=== PATIENT | female | born 1990 | race Hispanic/Latino ===

== ENCOUNTER 2023-11-17 15:33 | Inpatient (IN) | payer BC ==
[2023-11-16 21:30] VITALS: BP 159/110
[~2023-11-17] VITALS: Ht 170.2 cm; Wt 79.8 kg
[2023-11-17 16:20] LABS: BASOPHILS # (AUTO) 0.02 K/uL (0.00-0.20); BASOPHILS % (AUTO) 0.4 % (0.0-5.0); EOSINOPHILS # (AUTO) 0.03 K/uL (0.00-0.70); EOSINOPHILS % (AUTO) 0.6 % (0.0-8.0); HEMATOCRIT 35.3 % (36-48); IMMATURE GRANULOCYTE ABSOLUTE 0.03 K/uL (0-1); LYMPHOCYTES # (AUTO) 1.1 K/uL (1.0-4.8); LYMPHOCYTES % (AUTO) 23.5 % (21.0-51.0); MEAN CORPUSCULAR HGB CONC 32.9 g/dL (32.0-36.0); MEAN CORPUSCULAR VOLUME 100.6 fL (79-99); MONOCYTES # (AUTO) 0.8 K/uL (0.1-1.0); MONOCYTES % (AUTO) 16.3 % (3.0-13.0); NEUTROPHILS # (AUTO) 2.9 K/uL (1.8-7.7); NEUTROPHILS % (AUTO) 58.6 % (40.0-77.0); PLATELET COUNT (AUTO) 205 K/uL (130-400); RED BLOOD CELL COUNT(AUTO) 3.51 MIL/uL (4.00-5.50); RED CELL DISTRIBUTION WIDTH 13.1 % (11.0-15.5); WHITE BLOOD COUNT (AUTO) 4.9 K/uL (4.8-10.8)
[2023-11-17 16:48] LABS: CREATININE 5.6 mg/dL (0.5-1.0); POTASSIUM 3.7 mmol/L (3.5-5.1)
[2023-11-17 16:53] LABS: ALBUMIN 2.9 g/dL (3.5-5.0); BILIRUBIN,TOTAL 0.2 mg/dL (0.2-1.0); TOTAL PROTEIN, SERUM 6.8 g/dL (6.0-8.3)
[2023-11-17 16:58] LABS: RAPID GROUP A STREP negative (NEGATIVE)
[2023-11-17 17:06] LABS: COVID19 (SARS ANTIGEN RAPID) PRESUMPTIVE NEGATIVE (NEGATIVE)
[2023-11-17 17:07] LABS: INFLUENZA TYPE A Negative For Type A (NEGATIVE); INFLUENZA TYPE B Negative For Type B (NEGATIVE)
[2023-11-17] MEDS: HYDRALAZINE 20MG/ML VIAL IV ONE (17:22)
[2023-11-17 18:04] LABS: INR 0.87 (0.85-1.15); PARTIAL THROMBOPLASTIN TIME 23.9 SEC (26.3-35.5); PROTHROMBIN TIME 9.3 SEC (9.6-11.6)
[2023-11-17] MEDS ORDERED: GLUCAGON 1MG KIT 1 MG ML IM PRN (18:30)
[2023-11-17] MEDS ORDERED: MAG/ALUM/SIMETH 30 ML UDCUP PO PRN (18:30)
[2023-11-17] MEDS ORDERED: LACTULOSE 20 GM/30 ML UDCUP PO PRN (18:30)
[2023-11-17] MEDS ORDERED: DiphenhydrAMINE HCL 50 MG/ML VIAL IV PRN (18:30)
[2023-11-17] MEDS ORDERED: NITROGLYCERIN 0.4 MG SL TAB SL PRN (18:30)
[2023-11-17] MEDS ORDERED: MAGNESIUM 2GM PREMIX 50ML 50 ML IV PRN (18:30)
[2023-11-17] MEDS ORDERED: GUAIFENESIN-DM 200/20 MG 10 ML PO PRN (18:30)
[2023-11-17] MEDS ORDERED: DEXTROSE 50%-WATER 50 ML DISP.SYRIN IV PRN (18:30)
[2023-11-17] MEDS ORDERED: ACETAMINOPHEN 325 MG TAB PO PRN (18:30)
[2023-11-17] MEDS ORDERED: FAMOTIDINE 20MG VIAL IV PRN (18:30)
[2023-11-17] MEDS ORDERED: TRAMADOL /APAP 37.5MG/325MG TAB PO PRN (18:30)
[2023-11-17] MEDS: HYDRALAZINE 20MG/ML VIAL IV PRN (19:22)
[2023-11-17] MEDS: 0.9%NACL 1000ML 1,000 ML IV SCH (19:22)
[2023-11-17] MEDS: ACETAMINOPHEN 325 MG TAB PO PRN (19:23)
[2023-11-17] MEDS: ONDANSETRON 4MG INJ IV PRN (20:18)
[2023-11-17] MEDS: FAMOTIDINE 20MG VIAL IV SCH (20:18)
[2023-11-17] MEDS: INSULIN HUMULIN R 100 UNIT/ML 3ML SQ SCH (21:00)
[2023-11-17] MEDS: HYDRALAZINE 25MG TABLET PO SCH (21:04)
[2023-11-17] MEDS: HEPARIN 5,000 UNIT VIAL SQ SCH (21:04)
[2023-11-17 21:30] VITALS: BP 159/110; PULSE 118; RESP 18; O2SAT 97
[2023-11-17 21:45] LABS: APPEARANCE,URINE CLOUDY (CLEAR); BACTERIA,URINE MOD /HPF (None Seen); BILIRUBIN,URINE NEGATIVE (NEGATIVE); COLOR,URINE COLORLESS (YELLOW); GLUCOSE, URINE (UA) 30 mg/dL (NEGATIVE); KETONES,URINE NEGATIVE (NEGATIVE); LEUKOCYTE ESTERASE ,URINE 250 Leu/uL (NEGATIVE); MUCUS,URINE RARE LPF (None Seen); NITRATE,URINE 2+ (NEGATIVE); OCCULT BLOOD,URINE NEGATIVE (NEGATIVE); PROTEIN,URINE 300 mg/dL (NEGATIVE); SQUAMOUS EPITHELIAL CELL,UR RARE /HPF (0-2); UROBILINOGEN,URINE 0.2 mg/dL (0.2-1.0); WBC,URINE 51-100 /HPF (0-1)
[2023-11-17] MEDS: ZOLPIDEM TARTRATE 5 MG TAB PO PRN (21:56)
[2023-11-17] MEDS ORDERED: HYDR25TA67 PO (23:44)
[2023-11-17] MEDS ORDERED: AMLO-258 PO (23:44)
[2023-11-17] MEDS ORDERED: PRED10TA3 PO (23:44)
[2023-11-17 23:59] VITALS: BP 148/87; PULSE 102; RESP 18
[2023-11-18] VITALS (7 sets, daily range): BP systolic 145–182; BP diastolic 90–114; PULSE 85–113; RESP 14–18; O2SAT 98–100
[2023-11-18 05:18] LABS: BASOPHILS # (AUTO) 0.01 K/uL (0.00-0.20); BASOPHILS % (AUTO) 0.2 % (0.0-5.0); HEMATOCRIT 32.9 % (36-48); IMMATURE GRANULOCYTE ABSOLUTE 0.04 K/uL (0-1); LYMPHOCYTES # (AUTO) 0.8 K/uL (1.0-4.8); MEAN CORPUSCULAR HEMOGLOBIN 32.4 pg (27.0-33.0); MEAN CORPUSCULAR HGB CONC 32.5 g/dL (32.0-36.0); MEAN CORPUSCULAR VOLUME 99.7 fL (79-99); MONOCYTES # (AUTO) 0.6 K/uL (0.1-1.0); MONOCYTES % (AUTO) 10.5 % (3.0-13.0); NEUTROPHILS # (AUTO) 4.5 K/uL (1.8-7.7); NEUTROPHILS % (AUTO) 74.6 % (40.0-77.0); PLATELET COUNT (AUTO) 195 K/uL (130-400); RED CELL DISTRIBUTION WIDTH 13.2 % (11.0-15.5)
[2023-11-18 05:44] LABS: ALBUMIN 2.7 g/dL (3.5-5.0); BILIRUBIN,DIRECT 0.1 mg/dL (0.0-0.3); BILIRUBIN,TOTAL 0.2 mg/dL (0.2-1.0); CREATININE 4.7 mg/dL (0.5-1.0); MAGNESIUM 1.7 mg/dL (1.80-2.40); PHOSPHORUS 3.3 mg/dL (2.5-4.9); POTASSIUM 3.7 mmol/L (3.5-5.1); THYROID STIMULATING HORMONE 10.77 uIU/mL (0.36-3.74); TOTAL PROTEIN, SERUM 6.4 g/dL (6.0-8.3); URIC ACID 6.1 mg/dL (2.6-7.2)
[2023-11-18 06:01] LABS: INR 0.9 (0.85-1.15); PARTIAL THROMBOPLASTIN TIME 24.2 SEC (26.3-35.5); PROTHROMBIN TIME 9.6 SEC (9.6-11.6)
[2023-11-18] MEDS: PREDNISONE 10 MG TABLET PO SCH (08:51)
[2023-11-18] MEDS: HYDRALAZINE 25MG TABLET PO SCH (08:51)
[2023-11-18] MEDS: AMLODIPINE 5 MG TAB PO SCH (08:51)
[2023-11-18] MEDS: Vitamin B Complex/Vit C/Folic Acid PO SCH (08:51)
[2023-11-18] MEDS ORDERED: AMLODIPINE 5 MG TAB PO SCH (09:00)
[2023-11-18 09:55] LABS: APPEARANCE,URINE CLOUDY (CLEAR); BILIRUBIN,URINE NEGATIVE (NEGATIVE); COLOR,URINE LIGHT-YELLOW (YELLOW); GLUCOSE, URINE (UA) 70 mg/dL (NEGATIVE); KETONES,URINE NEGATIVE (NEGATIVE); LEUKOCYTE ESTERASE ,URINE 500 Leu/uL (NEGATIVE); NITRATE,URINE NEGATIVE (NEGATIVE); OCCULT BLOOD,URINE SMALL (NEGATIVE); PH,URINE 6.5 (5.0-8.0); PROTEIN,URINE 300 mg/dL (NEGATIVE); UROBILINOGEN,URINE 0.2 mg/dL (0.2-1.0)
[2023-11-18 10:11] LABS: ADD UA MICROSCOPIC YES
[2023-11-18 10:19] LABS: BACTERIA,URINE FEW /HPF (None Seen); MUCUS,URINE RARE LPF (None Seen); SQUAMOUS EPITHELIAL CELL,UR MOD /HPF (0-2); WBC CLUMP FEW /HPF (0-1); WBC,URINE 51-100 /HPF (0-1)
[2023-11-18] MEDS: HYDRALAZINE HCL 10 MG TABLET PO ONE (16:05)
[2023-11-18] MEDS: PROMETHAZINE HCL 25 MG TABLET PO ONE (16:06)
[2023-11-18] MEDS: SODIUM BICARBONATE 650 MG TAB PO SCH (21:19)
[2023-11-18 21:50] LABS: HEPATITIS B SURFACE ANTIGEN Non-Reactive (Nonreactive)
[2023-11-19 00:04] VITALS: BP 144/83; PULSE 85; RESP 18
[2023-11-19 00:05] LABS: CREATININE,URINE RANDOM 69.29 mg/dL (30-135)
[2023-11-19 00:12] LABS: PROTEIN,URINE RANDOM 351.3 mg/dL (0-11.9)
[2023-11-19 02:47] LABS: HEPATITIS C ANTIBODY Non-Reactive (Nonreactive)
[2023-11-19 04:05] VITALS: BP 148/92; PULSE 87; RESP 18
[2023-11-19 05:28] LABS: BASOPHILS # (AUTO) 0.01 K/uL (0.00-0.20); BASOPHILS % (AUTO) 0.2 % (0.0-5.0); EOSINOPHILS # (AUTO) 0.03 K/uL (0.00-0.70); EOSINOPHILS % (AUTO) 0.7 % (0.0-8.0); HEMATOCRIT 33.3 % (36-48); IMMATURE GRANULOCYTE ABSOLUTE 0.01 K/uL (0-1); LYMPHOCYTES % (AUTO) 24.1 % (21.0-51.0); MEAN CORPUSCULAR HEMOGLOBIN 32.3 pg (27.0-33.0); MEAN CORPUSCULAR HGB CONC 31.8 g/dL (32.0-36.0); MEAN CORPUSCULAR VOLUME 101.5 fL (79-99); MONOCYTES # (AUTO) 0.7 K/uL (0.1-1.0); MONOCYTES % (AUTO) 17.1 % (3.0-13.0); NEUTROPHILS # (AUTO) 2.5 K/uL (1.8-7.7); NEUTROPHILS % (AUTO) 57.7 % (40.0-77.0); PLATELET COUNT (AUTO) 200 K/uL (130-400); RED BLOOD CELL COUNT(AUTO) 3.28 MIL/uL (4.00-5.50); RED CELL DISTRIBUTION WIDTH 13.4 % (11.0-15.5); WHITE BLOOD COUNT (AUTO) 4.3 K/uL (4.8-10.8)
[2023-11-19 05:54] LABS: ALBUMIN 2.4 g/dL (3.5-5.0); BILIRUBIN,TOTAL 0.2 mg/dL (0.2-1.0); CREATININE 4.3 mg/dL (0.5-1.0); MAGNESIUM 1.6 mg/dL (1.80-2.40); POTASSIUM 3.4 mmol/L (3.5-5.1); THYROID STIMULATING HORMONE 5.34 uIU/mL (0.36-3.74); TOTAL PROTEIN, SERUM 6.1 g/dL (6.0-8.3); URIC ACID 5.8 mg/dL (2.6-7.2)
[2023-11-19 05:59] LABS: INR < 0.93 (0.85-1.15); PROTHROMBIN TIME 9.9 SEC (9.6-11.6)
[2023-11-19 06:18] LABS: % IRON SATURATION 74.8 % (22-44)
[2023-11-19 07:55] VITALS: BP 154/99; PULSE 80; RESP 17
[2023-11-19 08:00] VITALS: O2SAT 97
[2023-11-19] MEDS: ACETAMINOPHEN 325 MG TAB PO PRN (08:58)
[2023-11-19] MEDS: HYDRALAZINE 25MG TABLET PO SCH (10:00)
[2023-11-19] MEDS ORDERED: RENAL DOSE IV PRN (10:00)
[2023-11-19 11:41] VITALS: BP 146/97; PULSE 86; RESP 17
[2023-11-19] MEDS: ZOSYN 3.375GM +NS 50ML IV SCH (12:08)
[2023-11-19 12:14] LABS: ANTI-SCLERODERMA 70 <0.2 AI (0.0-0.9)
[2023-11-19] MEDS ORDERED: AMLO5TAB4 PO (13:00)
[2023-11-19] MEDS ORDERED: HYDR25 PO (13:00)
[2023-11-19] MEDS ORDERED: PRED10TA3 PO (13:00)
[2023-11-19] MEDS ORDERED: CEPH250 PO (15:02)
[2023-11-19 16:00] VITALS: BP 143/80; PULSE 91; RESP 17
[2023-11-21 13:14] LABS: ATYPICAL P-ANCA AB <1:20 titer (Neg:<1:20); CYTOPLASMIC (C-ANCA) AB, IGG <1:20 titer (Neg:<1:20)
== END 2023-11-19 16:35 | disposition home or self-care (01) | DRG 304 ==
LOC: EDH 15:33 → EDHIP 18:22 → INTOOBSV 18:22 → OBSVTOIN 18:22 → 4CH 21:25 → 4DH 11-19 13:52
PROVIDERS: ADMIT Hospitalist; ATTEND Hospitalist
DX: I16.1 Hypertensive emergency (principal); N17.0 Acute kidney failure with tubular necrosis; Z16.23 Resistance to quinolones and fluoroquinolones; N18.4 Chronic kidney disease, stage 4 (severe); N10 Acute pyelonephritis; Z20.822 Contact with and (suspected) exposure to COVID-19; N20.0 Calculus of kidney; M32.9 Systemic lupus erythematosus, unspecified; D64.9 Anemia, unspecified; F12.10 Cannabis abuse, uncomplicated; I12.9 Hypertensive chronic kidney disease with stage 1 through stage 4 chronic kidney disease, or unspecified chronic kidney disease; B96.20 Unspecified Escherichia coli [E. coli] as the cause of diseases classified elsewhere; E83.51 Hypocalcemia; M32.14 Glomerular disease in systemic lupus erythematosus; Z79.899 Other long term (current) drug therapy; Z81.8 Family history of other mental and behavioral disorders; Z82.49 Family history of ischemic heart disease and other diseases of the circulatory system; Z91.199 Patient's noncompliance with other medical treatment and regimen due to unspecified reason
CPT/HCPCS: 36415; 71045; 76770; 80048; 80053; 80076; 81001; 82140; 82550; 82570; 82728; 82948; 83036; 83540; 83550; 83605; 83735; 83880; 84100; 84145; 84156; 84439; 84443; 84481; 84484; 84550; 84702; 85025; 85027; 85610; 85730; 86038; 86160; 86215; 86235; 86255; 86803; 87086; 87186; 87340; 87426; 87804; 87880; 93005; 96372; 96374; 96375; G0378; J0360; J1644; J2405; J2543; J3475; J3490; J7030; J7512; Q0169